=== PATIENT | female | born 1950 | race Caucasian/White ===

== ENCOUNTER → 2023-08-30 17:49 | Outpatient (REF) | payer OTHER, SELFPAY | LOC: WDC 17:49 | PROVIDERS: ATTENDING PHYSICIAN Family Medicine | DX: Z12.31 Encounter for screening mammogram for malignant neoplasm of breast (principal) | CPT/HCPCS: 77063; 77067 ==

== ENCOUNTER 2024-06-24 18:58 | Emergency (ER) | payer OTHER, SELFPAY ==
[2024-06-24 19:08] VITALS: BP 177/87
--- NOTE | 2024-06-24 21:44 | ED.MUSCINJ ---
HPI-Injury
General
Chief Complaint: Fall
Source: patient
Time Seen by Provider: 06/24/24 20:58
History of Present Illness-Injury
Is this injury a work related problem?: No
Is pt an associate of [facility]/[place]?: No
Initial Injury comments:
Pt is a 73 yo F with a PMH of HLD, HTN,and T2DM who presents to the ED c/o pain and swelling of her R knee x 10 hrs. Patient fell on her right knee at noon-time today in her own backyard while she was setting up an [employer] for her
great-grandson. She denies any trauma to her head, HOGUE, or pain in any other joints.
Past History
Past History
ED Past Medical History: HTN, Hypercholesterolemia and NIDDM
ED Past Surgical History: None
Social History
Tobacco: Non-smoker
Review of Systems
Review of Systems
Constitutional: Reports no symptoms
EENT: Reports no symptoms
Respiratory: Reports no symptoms
Cardiac: Reports no symptoms
ABD/GI: Reports no symptoms
: Reports no symptoms
Musculoskeletal: Reports joint pain (R knee) and joint swelling (R knee)
Skin: Reports no symptoms
Neurological: Reports no symptoms
Phy Exam
General Physical Exam
General Presentation: well appearing
General Habitus: normal
General Mental: alert
Musculoskeletal Exam
Musculoskeletal Exam: full ROM, joint swelling and other (pain with palpation of the medial R knee, negative anterior drawer, valgus and varus stress tests)
Injury Course
Orders/Labs/Results
Orders:
Orders
06/24/24 19:12
CR Knee- Right 4 Or More View* Stat
Comment:
Reason For Exam: knee pain
*Critical Care Note
Total Time (30-74mins, 75-104mins- exclusive of procedures): Not Applicable
ED Attending Note
-
Portions of this chart may have been created with voice recognition software.� Occasional wrong word or��sound alike� substitutions may have occurred due to the inherent limitations of voice recognition software.
Discharge Plan
Departure
Prescriptions:
No Action
prednisone 20 MG tablet
40 mg PO Daily Qty: 10 0RF
Referrals:
Rosalio Regan DO [Family Provider] -
Interventions
Interventions:
*Risk Screen - Suicide Last Done: 06/24/24 19:11
*Neglect/Abuse Screening Last Done: 06/24/24 19:11
Discharge Date and Time
Print Language: STATELESS
[2024-06-24 21:50] VITALS: BP 158/84
== END 2024-06-24 22:10 | disposition home or self-care (01) ==
LOC: EMR 18:58
PROVIDERS: EMERGENCY PHYSICIAN Emergency Medicine; FAMILY PHYSICIAN Family Medicine
DX: M25.561 Pain in right knee (principal); M25.461 Effusion, right knee; W18.39XA Other fall on same level, initial encounter; E11.9 Type 2 diabetes mellitus without complications; E78.00 Pure hypercholesterolemia, unspecified; I10 Essential (primary) hypertension
CPT/HCPCS: 99283; 73564

== ENCOUNTER → 2024-09-26 17:33 | Outpatient (REF) | payer OTHER, SELFPAY | LOC: WDC 17:33 | PROVIDERS: ATTENDING PHYSICIAN Family Medicine | DX: Z12.31 Encounter for screening mammogram for malignant neoplasm of breast (principal) | CPT/HCPCS: 77063; 77067 ==